=== PATIENT | male | born 1980 | race African-American/Black ===

== ENCOUNTER 2018-10-22 19:12 | Emergency (ER) | payer OTHER, MEDICAID ==
[~2018-10-22] VITALS: Ht 175.3 cm; Wt 141.1 kg
[2018-10-22 19:43] VITALS: Ht 175.3 cm; Wt 141.1 kg
[2018-10-22 22:02] VITALS: BP 151/96
== END 2018-10-22 22:02 | disposition home or self-care (01) ==
LOC: ED 19:12
DX: A54.09 Other gonococcal infection of lower genitourinary tract (principal); A54.9 Gonococcal infection, unspecified
CPT/HCPCS: 87491; 87591; J0696